=== PATIENT | male | born 1985 | race Caucasian/White ===

== ENCOUNTER 2024-12-08 13:31 | Emergency (ER) | payer MEDICAID, SELFPAY ==
--- NOTE | 2024-12-08 13:09 | CT_ITS ---
FINAL REPORT TECHNIQUE: Thin section axial images were obtained through the thoracic spine without contrast. Sagittal and coronal images were obtained from the axial data. CLINICAL HISTORY: trauma, critical injury suspected FINDINGS: There is no acute fracture of the thoracic spine. There is no malalignment. Multilevel degenerative disease is noted with osteophyte formation and multilevel disc space narrowing. There is a limbus vertebra at T11. No acute paraspinal abnormality is identified. IMPRESSION: No acute osseous abnormality of the thoracic spine. Degenerative disc disease. Reviewed, Interpreted and Dictated by Nasrin Bruno MD Transcribed by Brandi Tian Authenticated and [facility]
--- NOTE | 2024-12-08 13:09 | CT_ITS ---
FINAL REPORT TECHNIQUE: Thin section axial images were obtained from skull base to vertex without contrast. Coronal reconstruction images were obtained from the axial data. Exam was performed using dose reduction techniques such as automated exposure control, adjustment of the mA and kV according to patient size, and use of iterative reconstruction technique. CLINICAL HISTORY: trauma, critical injury suspected FINDINGS: There is no mass effect or midline shift. There is no hydrocephalus. There is no intracranial hemorrhage. The posterior fossa is without acute abnormality. The basilar cisterns are preserved. There is opacification of the left maxillary sinus, sphenoid sinus and ethmoid air cells likely related to chronic sinusitis. No acute osseous abnormality is identified. IMPRESSION: No acute intracranial abnormality. Findings of chronic sinusitis. Reviewed, Interpreted and Dictated by Nasrin Bruno MD Transcribed by Brandi Tian Authenticated and [facility]
--- NOTE | 2024-12-08 13:09 | CT_ITS ---
FINAL REPORT TECHNIQUE: Postcontrast axial images of the chest were performed in a CTA protocol. The study was performed with techniques to keep radiation dose as low as reasonably achievable, (ALARA). Individual dose reduction techniques using automated exposure control or adjustment of mA and/or kV according to the patient's size were employed. CLINICAL HISTORY: trauma, critical injury suspected FINDINGS: The heart is normal in size. No adenopathy is identified. No pleural or pericardial effusion is identified. The thoracic aorta is normal in caliber with no focal aneurysm or dissection identified. No lung infiltrate or mass is identified. No blood is seen in the anterior mediastinum. There are changes of emphysema, greater than expected for patient's age. There is no pneumothorax. No acute osseous abnormality is seen of the chest. Specifically, no rib fracture is identified. IMPRESSION: No evidence of traumatic injury. Reviewed, Interpreted and Dictated by Nasrin Bruno MD Transcribed by Brandi Tian Authenticated and [facility]
--- NOTE | 2024-12-08 13:09 | CT_ITS ---
FINAL REPORT TECHNIQUE: Thin section axial images were obtained from the aortic arch to the skull base after intravenous contrast injection per CTA protocol. Multiplanar reconstruction images were obtained. Exam was performed using dose reduction techniques and the ALARA principle. CLINICAL HISTORY: trauma, critical injury suspected FINDINGS: CTA NECK: Aortic arch: There is a normal three-vessel configuration to the aortic arch. There is no significant stenosis of the great vessels at their origins. Right carotid artery: The right common carotid artery is patent without stenosis. The cervical portions of the right internal carotid artery are patent without stenosis. 0% stenosis per NASCET criteria. Left carotid artery: The left common carotid artery is patent without stenosis. The cervical portions of the left internal carotid artery are patent without stenosis. 0% stenosis per NASCET criteria. Vertebral arteries: The vertebral arteries are patent. No significant stenosis. IMPRESSION: Unremarkable exam. Reviewed, Interpreted and Dictated by Nasrin Bruno MD Transcribed by Brandi Tian Authenticated and [facility]
--- NOTE | 2024-12-08 13:09 | CT_ITS ---
FINAL REPORT TECHNIQUE: Thin section axial images were obtained through the cervical spine without contrast. Multiplanar reconstruction images were obtained from the axial data. Exam was performed using dose reduction techniques. CLINICAL HISTORY: trauma, critical injury suspected FINDINGS: There is no acute fracture or acute malalignment of the cervical spine. There is mild degenerative disease at C5-6. There is no evidence of unilateral or bilateral facet lock. Vertebral body height is preserved. No acute paraspinal abnormality is identified. IMPRESSION: No acute osseous abnormality of the cervical spine. Reviewed, Interpreted and Dictated by Nasrin Bruno MD Transcribed by Brandi Tian Authenticated and [facility]
--- NOTE | 2024-12-08 13:09 | XR_ITS ---
FINAL REPORT TECHNIQUE: Single view chest CLINICAL HISTORY: trauma FINDINGS: A single view of the chest was obtained. The heart and mediastinum are within normal limits. The lungs are clear. There is no pneumothorax. IMPRESSION: No acute cardiopulmonary process. Reviewed, Interpreted and Dictated by Nasrin Bruno MD Transcribed by Brandi Tian Authenticated and [facility]
--- NOTE | 2024-12-08 13:09 | CT_ITS ---
FINAL REPORT TECHNIQUE: Thin section axial images were obtained through the abdomen after contrast injection per CT angiogram protocol. Multiplanar reconstruction images were obtained from the axial data. This exam was performed with techniques to keep radiation dose as low as reasonably achievable. This includes automated exposure control, adjustment of the MA and KVP, and iterative reconstruction technique. CLINICAL HISTORY: trauma, critical injury suspected trauma protocol FINDINGS: Liver is homogeneous. No focal liver lesion is identified. Gallbladder is present. Within the spleen are multiple areas of contrast puddling with central hypodensity most consistent with splenic injury and active bleeding. There is a perisplenic hematoma. Pancreas and adrenal glands are unremarkable. Kidneys demonstrate no mass or hydronephrosis. There is no perinephric fluid. The GI tract demonstrates no obstruction. The appendix is normal. There is no focal bowel wall thickening. Free fluid is seen in the pelvis which is not normal in a male patient. There is no free air. A large amount of stool is noted throughout the colon. No acute osseous abnormality is seen. IMPRESSION: Findings most consistent with splenic injury with active hemorrhage into the spleen as well as perisplenic hematoma and hemoperitoneum. Delayed imaging was not obtained. No other solid organ injury identified. These findings were discussed with Dr. Gao at 2:30 PM. Reviewed, Interpreted and Dictated by Nasrin Bruno MD Transcribed by Brandi Tian Authenticated and [facility]
--- NOTE | 2024-12-08 13:09 | CT_ITS ---
FINAL REPORT TECHNIQUE: Thin section axial images are obtained through the brain after intravenous contrast injection. Multiplanar reconstructions were obtained from the axial data. Exam was performed using dose reduction techniques such as automated exposure control, adjustment of the mA and kV according to patient size, and use of iterative reconstruction technique. CLINICAL HISTORY: trauma, critical injury suspected FINDINGS: The intracerebral portions of the carotid arteries are patent. The anterior and middle cerebral arteries are patent. The posterior cerebral arteries arise from the basilar artery. They are patent. [place] of [place] is intact. The basilar artery is patent. The vertebral arteries are patent. There is no significant stenosis, aneurysm, or AVM. IMPRESSION: Unremarkable CT angiogram of the intracerebral vasculature. Reviewed, Interpreted and Dictated by Nasrin Bruno MD Transcribed by Brandi Tian Authenticated and [facility]
--- NOTE | 2024-12-08 13:09 | XR_ITS ---
FINAL REPORT CLINICAL HISTORY: trauma FINDINGS: SINGLE VIEW PELVIS: A single view of the pelvis was obtained. There is no acute fracture or dislocation. Vizualized joint spaces are normally aligned. Soft tissues are unremarkable. IMPRESSION: No acute bony abnormality. Reviewed, Interpreted and Dictated by Nasrin Bruno MD Transcribed by Brandi Tian Authenticated and [facility]
--- NOTE | 2024-12-08 13:09 | CT_ITS ---
FINAL REPORT TECHNIQUE: Thin section axial images were obtained through the lumbar spine without contrast. Sagittal and coronal reconstruction images were obtained from the axial data. Exam was performed using dose reduction techniques. CLINICAL HISTORY: trauma, critical injury suspected FINDINGS: There is no acute fracture or acute malalignment of the lumbar spine. Vertebral body height is preserved. There is mild multilevel degenerative disease with disc space narrowing and osteophyte formation. There is no significant central stenosis. Paraspinal soft tissues are within normal limits. There is no paraspinal mass or fluid collection. IMPRESSION: No acute abnormality of the lumbar spine. Mild multilevel degenerative disease. Reviewed, Interpreted and Dictated by Nasrin Bruno MD Transcribed by Brandi Tian Authenticated and [facility]
[2024-12-08 13:12] VITALS: BP 144/80; PULSE 82; RESP 20; TEMP 36.8; O2SAT 95; BMI 20.7
[2024-12-08 13:19] LABS: Hematocrit 43.8 % (42.0-52.0); Hemoglobin 15.0 g/dL (14.1-18.0); Immature Granulocytes % 0.5 %; Mean Corpuscular HGB Conc 34.2 g/dL (31.8-35.4); Mean Corpuscular Hemoglobin 30.9 pg (27.0-31.2); Mean Corpuscular Volume 90.3 fl (80-94); Nucleated Red Blood Cells % 0 %; Platelet Count 183 K/mm3 (142-424); Red Blood Count 4.85 M/mm3 (4.60-6.20); Red Cell Distribution Width-SD 39.2 fL; White Blood Count 11.1 K/mm3 (4.8-10.8)
[2024-12-08 13:27] LABS: Alanine Aminotransferase 36 U/L (12-78); Albumin Level 4.3 g/dl (3.5-5.0); Albumin/Globulin Ratio 1.9 (1.1-1.8); Alkaline Phosphatase 50 U/L (38-126); Anion Gap 9.8 mEq/L (5-15); Aspartate Amino Transferase 38 U/L (17-59); Bilirubin,Total 0.4 mg/dl (0.2-1.3); Blood Urea Nitrogen 13 mg/dl (9-20); Calcium 9.3 mg/dl (8.4-10.2); Carbon Dioxide 28 mmol/L (22.0-30.0); Chloride 103 mmol/L (98-107); Creatinine Clearance Estimated 130 mL/min (50-200); Creatinine,Serum 0.70 mg/dl (0.66-1.25); Estimated Glomerular Filt Rate 125 ml/min (>60); GFR (African American) 151 ML/MIN (>60); Globulin 2.3 g/dL (1.3-3.2); Glucose 111 mg/dl (74-100); Potassium 3.8 mmoL/L (3.5-5.1); Sodium 137 mmol/L (136-145); Total Protein,Serum 6.6 g/dl (6.3-8.2)
[2024-12-08 13:32] LABS: Activated Partial Thrombo Time 27.6 seconds (22.8-30.6); INR 1.05 (0.9-1.1); Prothrombin Time 11.6 seconds (10.1-12.5)
[2024-12-08 13:36] VITALS: O2SAT 96
[2024-12-08] MEDS: 0.9 % SODIUM CHLORIDE 50 ML VIAL 100 ML IV (13:38)
[2024-12-08] MEDS: IOPAMIDOL-370 (76%);100ML BOTTLE 160 ML IV (13:39)
[2024-12-08] MEDS: SODIUM CHLORIDE 0.9% 10ML SYR (RAD ONLY) 10 ML IV (13:39)
--- OUTSIDE RECORDS SUMMARY | 2024-12-08 13:49 | XMS_ITS | Clinical Summary ---
Author Organization Healthcare Address [address] [place] [address] Care Team Providers Care Brim Raiser Name Role Phone Filippo Morales MD Primary Care Provider [phone] Social History Tobacco Use Types Packs/Day Years Used Date Smoking Tobacco: Never Assessed Sex and Gender Information Value Date Recorded Sex Assigned at Not on file Legal Sex Male 8:37 PM EDT Gender Identity Not on file Sexual Orientation Not on file Last Filed Vital Signs Vital Sign Reading Time Taken Comments Blood Pressure - - Pulse - - Temperature - - Respiratory Rate - - Oxygen Saturation - - Inhaled Oxygen Concentration - - Weight 79.4 kg (175 lb) 01/12/2015 4:12 PM EDT Height 175.3 cm (5' 9 ) 01/12/2015 4:12 PM EDT Body Mass Index 25.84 01/12/2015 4:12 PM EDT Plan of Treatment Not on file Care Teams Brim Raiser Relationship Specialty Start Date End Date Filippo Morales MD [address] [place] [id number] PCP - General 08/11/20
[2024-12-08 14:00] VITALS: BP 158/81; PULSE 76; RESP 14; O2SAT 97
[2024-12-08 14:18] LABS: Microscopic, Urine URINE MICROSCOPIC (MICROSCOPIC)
[2024-12-08 14:21] LABS: Bilirubin,Urine Negative (Negative); Color,Urine YELLOW (Yellow); Glucose,Urine (UA) Negative (Negative); Ketones,Urine Negative (Negative); Leukocyte Esterase,Urine Negative (Negative); PH,Urine 7.0 (5.0-8.5); Protein,Urine Negative (Negative); Specific Gravity, Urine <= 1.005 (1.005-1.030); Urobilinogen,Urine 0.2 EU/dl (0.2)
[2024-12-08 14:33] LABS: Bacteria,Urine Trace /lpf; RBC,Urine Occasional #/hpf (0-3)
[2024-12-08 14:34] LABS: Squamous Epithelial Cell,Urine Occasional #/hpf (0-5)
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
--- NOTE | 2024-12-08 14:40 | PC.NURSE ---
Called for flight status, they are checking with [facility], and will call back
--- NOTE | 2024-12-08 14:41 | PC.NURSE ---
[facility] called for possible transfer. Will call back.
--- NOTE | 2024-12-08 14:47 | PC.NURSE ---
[facility] called back and is speaking with [facility] now
[2024-12-08] MEDS: FENTANYL 100MCG/2ML VIAL 50 MCG IV (15:00)
[2024-12-08] MEDS: ONDANSETRON 4MG/2ML VIAL 4 MG IV (15:00)
[2024-12-08 15:11] VITALS: BP 145/84; PULSE 81; RESP 20; TEMP 36.7; O2SAT 98
--- NOTE | 2024-12-08 15:11 | PC.NURSE ---
[facility] at [facility] to transport pt to
[2024-12-08 15:35] LABS: Amphetamine/Metha Screen,Urine Negative ng/ml (<1000); Benzodiazepines Screen,Urine Negative ng/ml (<200)
[2024-12-08 15:36] LABS: Barbiturates Screen,Urine Negative ng/ml (<200)
[2024-12-08 15:38] LABS: Methadone Screen,Urine Negative ng/ml (<300)
[2024-12-08 15:40] LABS: Opiate Screen,Urine Negative ng/ml (<300); Phencyclidine Screen,Urine Negative ng/ml (<25)
== END 2024-12-08 15:14 | disposition short-term general hospital (02) ==
PROVIDERS: Emergency Provider Student in an Organized Health Care Education/Training Program; PCP Pediatrics
DX: S36.039A Unspecified laceration of spleen, initial encounter (principal); R10.12 Left upper quadrant pain; M54.2 Cervicalgia; V49.40XA Driver injured in collision with unspecified motor vehicles in traffic accident, initial encounter
CPT/HCPCS: 70450; 70496; 70498; 71045; 71275; 72125; 72128; 72131; 72170; 74174; 80053; 80307; 80320; 81001; 83605; 85025; 85610; 85730; 96374; 96375; 99285; 99291; G0390; J2405; J3010; Q9967